=== PATIENT | female | born 1980 | race Caucasian/White ===

== ENCOUNTER 2021-11-16 02:14 | Emergency (ER) | payer OTHER ==
[~2021-11-16] VITALS: Ht 160 cm; Wt 88.2 kg
[2021-11-16 02:31] VITALS: BP 111/72
[2021-11-16] MEDS ORDERED: IBUPROFEN 600MG TABLET PO STA (02:36)
[2021-11-16] MEDS ORDERED: ACET-2708 PO (05:27)
== END 2021-11-16 06:00 | disposition home or self-care (01) ==
LOC: ER 02:14
DX: S70.12XA Contusion of left thigh, initial encounter (principal); Y08.89XA Assault by other specified means, initial encounter; Y93.89 Activity, other specified; Y92.89 Other specified places as the place of occurrence of the external cause; Y99.8 Other external cause status; M25.532 Pain in left wrist
CPT/HCPCS: 73110; 81025; 99283